=== PATIENT | male | born 1960 | race Caucasian/White ===

== ENCOUNTER → 2017-01-27 | Outpatient (CLI) | payer OTHER ==
[~2017-01-27] MED LIST: ASPIRIN325 OR; CARVEDILOL6.25 MG PO; LASIX 20 MG TAB20 MG PO; NITROGLYCERIN0.4 MG SL; PLAVIX 75 MG TA75 MG PO; SIMVASTATIN40 MG PO
== END ==
LOC: RAD 12:36
DX: R06.00 Dyspnea, unspecified (principal)

== ENCOUNTER → 2020-08-31 | Outpatient (CLI) | payer BC, OTHER | LOC: CAT 10:43 | PROVIDERS: ATTEND Internal Medicine | DX: J43.9 Emphysema, unspecified (principal); R93.89 Abnormal findings on diagnostic imaging of other specified body structures; I70.0 Atherosclerosis of aorta; M25.78 Osteophyte, vertebrae; J84.10 Pulmonary fibrosis, unspecified ==

== ENCOUNTER → 2021-11-24 | Outpatient (CLI) | payer BC, OTHER ==
[2021-11-24 13:42] LABS: CREATININE 1.1 mg/dL (0.7-1.3)
== END ==
LOC: MRI 10:59 → LAB 12:56 → MRI 13:56
DX: M50.323 Other cervical disc degeneration at C6-C7 level (principal); M48.02 Spinal stenosis, cervical region; M50.322 Other cervical disc degeneration at C5-C6 level; Z95.0 Presence of cardiac pacemaker